=== PATIENT | male | born 1980 | race African-American/Black ===

== ENCOUNTER 2017-05-10 16:08 | Emergency (ER) | payer OTHER ==
[~2017-05-10] VITALS: Ht 177.8 cm; Wt 67.1 kg
[2017-05-10] MEDS ORDERED: Norco 5mg/325mg tab ORAL ONE (16:30)
--- NOTE | 2017-05-10 16:57 | Diagnostic Imaging Report ---
Indication: Reason For Exam: PAIN Technique: 3 views left hand Comparison: none Findings: There is posterior dislocation, by one bone width, of the fifth distal interphalangeal joint. Small osseous fragment is seen at the anterior corner of the base of the distal phalanx. No other fractures or dislocations. Joint spaces are preserved Impression: Positive for fifth distal and interphalangeal joint dislocation. Associated small chip fracture off the base of the fifth distal phalanx Findings discussed by phone with nurse practitioner Eliel Chapa in the emergency room at the time of interpretation
--- NOTE | 2017-05-10 17:37 | Emergency Room Report ---
History of Present Illness General Chief Complaint: Upper Extremity Injury Source: Patient (Eliel Chapa) Present Illness HPI 37 yo male patient presents to ER complaining of injury to left hand small finger x1 hour. Patient reports he was moving boxes and a box dropped his hand. Patient reports deformity of small finger. Patient reports sharp pain 10/10. Patient denies open wound or bleeding. Patient denies LOC, head injury. Reports hx of chronic pain treated with [place]. Reports has not taken any medication prior to arrival at ER. Denies fever, chest pain, SOB. (Eliel Chapa) Allergies: Coded Allergies: No Known Allergies (Unverified , 05/10/17) Patient History Past Medical History: see triage record Reviewed Nursing Documentation: PMH: Agreed, PSxH: Agreed (Eliel Chapa) Nursing Documentation-PMH Past Medical History: No History, Except For Hx Neurological Problems: Yes (Eliel Chapa) Review of Systems All Other Systems: negative except mentioned in HPI (Eliel Chapa) Physical Exam Vital Signs Date Time Temp Pulse Resp B/P (MAP) Pulse Ox O2 Delivery O2 Flow Rate FiO2 05/10/17 16:19 97.3 85 16 132/58 99 Room Air 97.3 Sp02 EP Interpretation: reviewed, normal General Appearance: well appearing, alert, GCS 15, non-toxic, mild distress Head: normocephalic, atraumatic Eyes: bilateral eye normal inspection, bilateral eye PERRL ENT: hearing grossly normal, normal pharynx, normal voice, uvula midline, moist mucus membranes Neck: full range of motion Respiratory: normal inspection, lungs clear, normal breath sounds, no rhonchi, no accessory muscle use, no wheezing, speaking full sentences Cardiovascular #1: regular rate, rhythm Cardiovascular #2: 2+ radial (R), 2+ radial (L) Musculoskeletal: back normal, digits/nails normal, gait/station normal, no calf tenderness, decreased range of motion, swelling, other - left pinky finger : distal phalanx in hyperextension, unable to move; NVI, tender - left hand Neurologic: alert, oriented x3, responsive, motor strength/tone normal, normal gait Psychiatric: mood/affect normal Skin: no rash, other - no open wound, no break in skin Lymphatic: no adenopathy (Eliel Chapa) Procedures Joint Reduction Joint Reduction : Consent: Verbal Joint Reduction Site: other - left hand DIP joint Procedural Sedation: No - digital block with 1% lidocaine performed Reduction Attempts: One Pre-Procedure NV Exam: Yes Post-Procedure NV Exam: Yes Post Joint Reduction Film: joint reduced Patient Tolerated: Well Complications: None (Eliel Chapa) Medical Decision Making PA Attestation Dr. Mccray is my supervising Physician whom patient management has been discussed with. (Eliel Chapa) Diagnostic Impression: Primary Impression: Dislocation, finger closed Qualified Codes: S63.259A - Unspecified dislocation of unspecified finger, initial encounter Additional Impression: Fracture, finger Qualified Codes: S62.667A - Nondisplaced fracture of distal phalanx of left little finger, initial encounter for closed fracture ER Course Pt. presents to the ED c/o finger pain s/p injury. Ddx considered but are not limited to fracture, dislocation, sprain, strain, contusion, cellulitis. Vital signs: are WNL, pt. is afebrile Significant hyperextended deformity of DIP digit on physical exam, hyperextension, unable to bend finger, cap refill <2 seconds. Ordered pain medication and xray of left hand. ER COURSE: Provided patient with pain medication. An X-ray of the left hand was ordered, results show fifth digit dislocation at DIP joint and small chip fracture at base of distal phalanx per official radiology report; spoke with radiologist on the phone. Informed patient of dislocation and fracture. Discuss with patient need for reduction, patient provided with verbal consent to procedure. Patient finger clean and sterilized. Digital block performed on patient using 1 % lidocaine 2 ml used. Reduction performed, single attempt required for reduction. Patient tolerated procedure well. Patient able to bend finger at DIP joint following procedure. The affected finger was checked afterwards by me showing good alignment and support with distal neurovascular functioning intact. Post-reduction x-ray of left hand ordered. Results show successful reduction of dislocation. Fracture still present. Short arm splint applied to arm following concerns from patient and that finger splint may not remain on. and protect finger. The affected finger was checked afterwards by me showing good alignment and support with distal neurovascular functioning intact. DISCHARGE: -Rx provided for Ibuprofen for pain symptoms. Patient reports prescription for [place]; will not provide patient with opioid prescription. At this time pt. is stable for d/c to home. Will provide printed patient care instructions, and any necessary prescriptions. Patient instructed to follow with primary care provider in 2-3 days and to request further orthopedic follow-up. Care plan and follow up instructions have been discussed with the patient prior to discharge. Patient instructed on RICE method: rest, ice, compression, elevation. Patient instructed to NWB. Take medications as directed. Patient questions asked and answered. ER precautions given, patient instructed to return to ER immediately for any new or worsening of symptoms. (Eliel Chapa) ER Course I supervised and assisted in the reduction of the finger. (Agustin Mccray M.D.) Other X-Ray Diagnostic Results Other X-Ray Diagnostic Results #1: X-Ray ordered: left hand # of Views/Limited Vs Complete: 3 View Indication: Pain EP Interpretation: Yes PA Xray: Interpretation reviewed, by supervising MD, and agrees with findings. Interpretation: no soft tissue swelling, other - Positive for fifth distal and interphalangeal joint dislocation. Impression: No acute disease PA Scribe Text Varun Chapa PA-C Other X-Ray Diagnostic Results #2: X-Ray ordered: left hand # of Views/Limited Vs Complete: 3 View Indication: Other - post-reduction EP Interpretation: Yes PA Xray: Interpretation reviewed, by supervising MD, and agrees with findings. Interpretation: no dislocation, no soft tissue swelling, other - Interim successful reduction of previously demonstrated fifth distal (Eliel Chapa.[place]) Other X-Ray Diagnostic Results #1: PA Xray: Interpretation reviewed, by supervising MD, and agrees with findings. - Agustin Mccray MD Electronically Signed by: I reviewed these films Other X-Ray Diagnostic Results #2: PA Xray: Interpretation reviewed, by supervising MD, and agrees with findings. - Agustin Mccray MD Electronically Signed by: I reviewed these films (Agustin Mccray M.D.) Last Vital Signs Date Time Temp Pulse Resp B/P (MAP) Pulse Ox O2 Delivery O2 Flow Rate FiO2 05/10/17 16:31 97.3 05/10/17 16:19 85 16 132/58 99 Room Air (Eliel Chapa P.[place]) Status: improved (Agustin Mccray M.D.) Disposition: HOME, SELF-CARE Condition: Improved Scripts Ibuprofen* (MOTRIN*) 600 Mg Tablet 600 MG ORAL Q8H Y for For Pain, #30 TAB 0 Refills Prov: Eliel Chapa 05/10/17 Referrals: [facility],REFERRING (PCP) Patient Instructions: Finger Fracture, [id number], Finger or Thumb Dislocation, [id number] Additional Instructions: Patient instructed to follow up with primary care provider and discuss further referral to orthopedics. Patient instructed on RICE method: rest, ice, compression, elevation. Patient instructed to NWB. Take medications as directed. Patient questions asked and answered. ER precautions given, patient instructed to return to ER immediately for any new or worsening of symptoms. Eliel Chapa May 10, 2017 17:37 Agustin Mccray M.D. May 13, 2017 02:37
[2017-05-10] MEDS ORDERED: IBUPROFEN600 MG ORAL (18:02)
[2017-05-10 19:31] VITALS: BP 132/58
[2017-05-10 19:34] VITALS: BP 132/58
--- NOTE | 2017-05-11 09:39 | Diagnostic Imaging Report ---
Indication: Left hand pain, status post reduction of dislocation Technique: 3 views left hand Comparison: One hour earlier Findings: Previously demonstrated fifth distal interphalangeal joint dislocation has been reduced, with satisfactory anatomic alignment. Small fracture fragment is again seen projected at the anterior aspect of the base of the fifth distal phalanx on the lateral and oblique views. No other acute fractures. No dislocations. Impression: Interim successful reduction of previously demonstrated fifth distal interphalangeal joint dislocation. Associated small anterior corner fracture again demonstrated
== END 2017-05-10 18:30 | disposition home or self-care (01) ==
LOC: EMR 17:34
DX: S63.297A Dislocation of distal interphalangeal joint of left little finger, initial encounter (principal); S62.637A Displaced fracture of distal phalanx of left little finger, initial encounter for closed fracture; W20.8XXA Other cause of strike by thrown, projected or falling object, initial encounter; Y92.9 Unspecified place or not applicable
CPT/HCPCS: 99284